=== PATIENT | female | born 1950 | race Caucasian/White ===

== ENCOUNTER → 2016-09-15 | Outpatient (CLI) | payer MEDICARE ==
--- NOTE | 2016-09-17 11:43 | SLEEPCENT ---
DATE OF STUDY: 09/15/2016 ORDERING PHYSICIAN: Modesto Kay DO Nocturnal polysomnography was performed for the titration of pressure therapy in this patient with the diagnosis of obstructive sleep apnea syndrome, being treated with continuous positive airway pressure (CPAP) at pressure of +12. On evaluation of the patient's home mask, a significant leak was identified, and the patient was fit to a [employer] Quattro full face mask of extra-small size, which significantly improved pressure delivery. The lights were then extinguished. 7 hours and 23 minutes of data were reviewed. There were 290 minutes of sleep identified. Sleep latency was normal at 11 minutes. Rapid eye movement (REM) latency was mildly delayed at 132 minutes. Sleep architecture was good. The patient had a period of awake from 3:30 to 4:45, resulting in reduced sleep efficiency at 67%, but there were two REM periods appreciated. The patient's electrocardiogram (EKG) showed a sinus rhythm with an average heart rate of 72 beats per minute. Electroencephalogram (EEG) showed normal waveforms for awake and sleep. Respiratory events were fully palliated with continuous positive airway pressure (CPAP) at a pressure of +12. There was some limb activity appreciated. Two trains of 30 events. Limb movement arousal index was 6.6. IMPRESSION: Obstructive sleep apnea syndrome (G47.33). RECOMMENDATION: Nightly use of pressure therapy at 12 cm of water with a correctly-fitting mask is sufficient to address the patient's respiratory events.
== END ==
LOC: M SLEEP 20:10
PROVIDERS: ATTEND Internal Medicine Pulmonary Disease
DX: G47.33 Obstructive sleep apnea (adult) (pediatric) (principal)